=== PATIENT | male | born 1930 | race Caucasian/White ===

== ENCOUNTER → 2016-09-11 | Outpatient (CLI) | payer OTHER | END | disposition home or self-care (01) | LOC: CFH 12:15 | PROVIDERS: ATTEND Specialist | DX: I65.23 Occlusion and stenosis of bilateral carotid arteries (principal) | CPT/HCPCS: 93880 ==

== ENCOUNTER 2019-08-11 09:55 | Emergency (ER) | payer MEDICARE ==
[~2019-08-11] VITALS: Ht 182.9 cm; Wt 68.7 kg
--- NOTE | 2019-08-11 10:29 | NUR ---
PT TO IMAGING VIA [facility] AT THIS TIME.
[2019-08-11] MEDS ORDERED: MORPHINE SULFATE 4 MG/ML, 1ML IVPush PRN (10:30)
[2019-08-11] MEDS ORDERED: SODIUM CHLORIDE FLUSH 10ML SYR IVF ONE (10:30)
[2019-08-11] MEDS ORDERED: ONDANSETRON 2MG/ML, 2ML IVPush ONE (10:30)
[2019-08-11] MEDS ORDERED: MORPHINE SULFATE 4 MG/ML, 1ML ONE (11:06)
[2019-08-11] MEDS ORDERED: ONDANSETRON 2MG/ML, 2ML ONE (11:06)
[2019-08-11 11:16] LABS: BASOPHILS # (AUTO) 0.02 x10^3/uL (0-0.1); BASOPHILS % (AUTO) 0 % (0-1); EOSINOPHILS # (AUTO) 0.07 x10^3/uL (0-0.4); EOSINOPHILS % (AUTO) 1 % (1-7); LYMPHOCYTES # (AUTO) 1.45 x10^3/uL (1-3.4); LYMPHOCYTES % (AUTO) 18 % (22-44); MD NO; MEAN CORPUSCULAR HEMOGLOBIN 29.3 pg (27.5-34.5); MEAN CORPUSCULAR HGB CONC 33.3 g/dL (33.2-36.2); MEAN CORPUSCULAR VOLUME 88.2 fL (81-97); MEAN PLATELET VOLUME 8.3 fL (7.4-10.4); MONOCYTES # (AUTO) 0.57 x10^3/uL (0.2-0.8); MONOCYTES % (AUTO) 7 % (2-9); NEUTROPHILS # (AUTO) 5.79 x10^3/uL (1.8-6.8); NEUTROPHILS % (AUTO) 73 % (42-75); PLATELET COUNT 233 x10^3/uL (130-400); RED BLOOD COUNT 4.11 x10^6/uL (4.38-5.82); RED CELL DISTRIBUTION WIDTH 14.6 % (9.4-14.8)
--- NOTE | 2019-08-11 11:18 | NUR ---
THIS IS AN 89 YO MALE WHO PRESENTS TO THE ER C/O WORSENING SWELLING TO SHIRA SINCE LAST NIGHT. PT HAS KNOWN BICEP TEAR AFTER TAKING OUT THE TRASH APPROX 2 WEEKS AGO. PT C/O 03/23 PAIN. PT MEDICATED ORDERED. US AT BEDSIDE. SON AT BEDSIDE. PT ON CONT BP AND O2 MONITORS. REPORT TO FRIDA EPSTEIN WHO ASSUMED CARE OF PT.
[2019-08-11 11:25] LABS: INTERNATIONAL NORMALIZED RATIO 0.96 (0.93-1.1); PROTHROMBIN TIME 10.2 Seconds (9.6-11.5)
[2019-08-11 11:27] LABS: ALBUMIN 3.8 g/dL (3.4-5.0); ANION GAP 4 mmol/L (5-15); CALCIUM 8.3 mg/dL (8.5-10.1); CHLORIDE 102 mmol/L (98-107); CREATININE 0.84 mg/dL (0.7-1.3)
--- NOTE | 2019-08-11 11:31 | NUR ---
REPORT FROM KENNETH GALICIA, ASSUMING CARE AT THIS TIME.
--- NOTE | 2019-08-11 12:32 | NUR ---
PT IV REMOVED WITH CATH INTACT. PT ASSISTED IN DRESSING AND RIGHT SLING APPLIED. DISCHARGE INSTRUCTIONS GIVEN TO PATIENT AND SON. PT GIVEN PRESCRIPTION FOR 2 MEDICATIONS. RN DISCUSSES MEDICATIONS WITH PATIENT. PT AND SON TEACH BACK USE OF MEDICATIONS, SIDE EFFECTS AND DOSING. PT OUT OF ED PER WHEELCHAIR WITH SON. PT HAS CANE UPON DISCHARGE.
[2019-08-11 12:34] VITALS: BP 163/72
== END 2019-08-11 12:37 | disposition home or self-care (01) ==
LOC: ED 12:31
DX: S46.211A Strain of muscle, fascia and tendon of other parts of biceps, right arm, initial encounter (principal); I10 Essential (primary) hypertension; X58.XXXA Exposure to other specified factors, initial encounter; Y93.89 Activity, other specified; Y92.009 Unspecified place in unspecified non-institutional (private) residence as the place of occurrence of the external cause; Y99.8 Other external cause status
CPT/HCPCS: 36415; 71045; 73060; 80048; 82040; 85025; 85610; 93971; 96374; 96375; 99285; J2270; J2405